=== PATIENT | female | born 1990 | race Caucasian/White ===

== ENCOUNTER 2017-04-22 11:45 | Emergency (ER) | payer OTHER ==
[~2017-04-22] VITALS: Ht 165.1 cm; Wt 93.4 kg
[2017-04-22 13:53] VITALS: BP 123/72
== END 2017-04-22 13:53 | disposition home or self-care (01) ==
LOC: ED 11:45
DX: L50.9 Urticaria, unspecified (principal); T67.7XXA Heat edema, initial encounter; X58.XXXA Exposure to other specified factors, initial encounter; Y93.89 Activity, other specified; Y92.89 Other specified places as the place of occurrence of the external cause; Y99.8 Other external cause status; J45.909 Unspecified asthma, uncomplicated; I49.9 Cardiac arrhythmia, unspecified

== ENCOUNTER 2018-05-06 09:26 | Emergency (ER) | payer OTHER ==
[~2018-05-06] VITALS: Ht 165.1 cm; Wt 91.3 kg
[2018-05-06 09:30] VITALS: Ht 165.1 cm; Wt 91.3 kg
[2018-05-06 10:43] VITALS: BP 118/56
== END 2018-05-06 10:43 | disposition home or self-care (01) ==
LOC: ED 09:26
DX: J45.901 Unspecified asthma with (acute) exacerbation (principal); R51 Headache; F17.210 Nicotine dependence, cigarettes, uncomplicated
CPT/HCPCS: 99406; J7512; J7613

== ENCOUNTER 2018-05-14 19:21 | Emergency (ER) | payer OTHER ==
[~2018-05-14] VITALS: Ht 162.6 cm; Wt 93.0 kg
[2018-05-14 19:45] VITALS: Ht 162.6 cm; Wt 93.0 kg
[2018-05-14 21:25] VITALS: BP 125/68
== END 2018-05-14 21:25 | disposition home or self-care (01) ==
LOC: ED 19:21
DX: K08.89 Other specified disorders of teeth and supporting structures (principal); J45.909 Unspecified asthma, uncomplicated; R51 Headache; R11.0 Nausea
CPT/HCPCS: J1885; Q0162